=== PATIENT | female | born 1940 | race Caucasian/White ===

== ENCOUNTER 2024-12-06 14:30 | Outpatient (CLI) | payer OTHER, SELFPAY | END 2024-12-06 14:31 | disposition home or self-care (01) | LOC: NFLDREF 12-09 04:27 | PROVIDERS: Visit Provider Physician Assistant Medical | DX: R42 Dizziness and giddiness (principal); N39.0 Urinary tract infection, site not specified; J01.90 Acute sinusitis, unspecified; I10 Essential (primary) hypertension | CPT/HCPCS: 84443; 87086 ==

== ENCOUNTER 2024-12-29 13:50 | Outpatient (CLI) | payer OTHER, SELFPAY | END 2024-12-29 13:51 | disposition home or self-care (01) | PROVIDERS: PCP Physician Assistant Medical; Visit Provider Physician Assistant Medical | DX: I10 Essential (primary) hypertension (principal); M06.9 Rheumatoid arthritis, unspecified | CPT/HCPCS: 80053; 80061 ==